=== PATIENT | female | born 1970 | race African-American/Black ===

== ENCOUNTER 2017-08-10 11:48 | Emergency (ER) | payer MEDICAID, OTHER ==
[~2017-08-10] VITALS: Ht 167.6 cm; Wt 85.0 kg
[2017-08-10] MEDS ORDERED: KETOROLAC 30MG/ML VIAL IV ONE (13:00)
[2017-08-10 13:59] VITALS: BP 148/86
== END 2017-08-10 14:01 | disposition home or self-care (01) ==
LOC: ER 11:48
DX: S39.012A Strain of muscle, fascia and tendon of lower back, initial encounter (principal); V49.40XA Driver injured in collision with unspecified motor vehicles in traffic accident, initial encounter; Y93.89 Activity, other specified; Y92.410 Unspecified street and highway as the place of occurrence of the external cause; S16.1XXA Strain of muscle, fascia and tendon at neck level, initial encounter
CPT/HCPCS: 81025; 96374; 99284; J1885

== ENCOUNTER 2021-11-10 23:12 | Emergency (ER) | payer MEDICAID, OTHER ==
[~2021-11-10] VITALS: Ht 165.1 cm; Wt 109.9 kg
[2021-11-10 23:27] VITALS: BP 160/97
== END 2021-11-11 01:00 | disposition left against medical advice (07) ==
LOC: ER 11-11 00:12
DX: Z53.21 Procedure and treatment not carried out due to patient leaving prior to being seen by health care provider (principal)